=== PATIENT | male | born 1980 | race Caucasian/White ===

== ENCOUNTER 2018-11-19 15:05 | Emergency (ER) | payer MEDICAID ==
[2018-11-19] MEDS: ACETAMINOPHEN 325 MG TAB PO (15:32)
== END 2018-11-19 16:16 | disposition home or self-care (01) ==
LOC: FTE 16:16
DX: T16.1XXA Foreign body in right ear, initial encounter (principal); H60.503 Unspecified acute noninfective otitis externa, bilateral; T16.2XXA Foreign body in left ear, initial encounter; F17.210 Nicotine dependence, cigarettes, uncomplicated; X58.XXXA Exposure to other specified factors, initial encounter; Y92.9 Unspecified place or not applicable
CPT/HCPCS: 69200; 99282-25